=== PATIENT | male | born 1990 | race Caucasian/White ===

== ENCOUNTER 2020-01-05 16:52 | Emergency (ER) | payer BC ==
--- NOTE | 2020-01-05 17:58 | CR ---
Chest: 2 views of the chest were obtained. Comparison: No prior chest imaging. Heart size and mediastinum are normal. Lungs show no acute parenchymal change. Bony structures appear within normal limits. Impression: 1. Nothing acute is seen on 2 view chest x-ray. Diagnostic code #1 This report was dictated in Mountain Standard Time
--- NOTE | 2020-01-05 18:03 | EDM.PDOC ---
ED [facility] GENERAL MEDICAL PROBLEM - General Chief Complaint: Respiratory Problem Stated Complaint: COUGH Time Seen by Provider: 01/05/20 17:09 - History of Present Illness INITIAL COMMENTS - FREE TEXT/NARRATIVE: HPI 29-year-old male presents for evaluation of approximately 6 weeks of cough that occurred following a several day self-limited URI type episode. * Smoking: denies * Asthma: denies * Recent URI: immediately preceding symptom onset. * Meds: denies SHAYAN-I and beta blockers * GERD: denies dyspepsia, PPI/ranitidine * Sinus: denies congestion or post-nasal drip * B-Sx: denies night sweats, weight loss, fever * Travel: patient has previously traveled to [place] of [facility], no significant desert exposure. M/S/F/SocHx notable for: please see HPI; remainder reviewed with patient and in chart. ROS: Negative constitutional, eye, cardiovascular, pulmonary, GI, , MSK, skin , neurologic, psychiatric, endocrine unless noted in the HPI. Exam HR 73, RR 18, BP 138/81, T 36.7C, SaO2 9 & room air. Gen: Pleasant, non-toxic appearing, resting comfortably. HEENT: NC, AT, PEERL, EOMI, oropharynx visually normal without postnasal drip. Resp: Clear to auscultation bilaterally, normal work of breathing, no accessory muscle usage. Card: Regular rate and rhythm with no murmurs, rubs, or gallops, extremities warm and well perfused. GI: Non-tender to palpation throughout all quadrants, non-distended, no rebound or guarding. : No suprapubic tenderness to palpation. MSK: No visible deformities, strength and tone without visually appreciable deficit. Skin: Normal color with no visible lesions. Neuro: alert and oriented 3, no facial asymmetry, vision and hearing WNL. Psych: Mood and affect appropriate. Labs / Imaging: CXR: no acute cardiopulmonary abnormality. MDM Previous chart, nursing note, labs, imaging, and vitals reviewed. A: 29-year-old male presents for evaluation of approximately 6 weeks of cough that occurred following a several day self-limited URI type episode. DDx: pneumonia, pericardial effusion, pleural effusion, COPD, asthma, SHAYAN inhibitor induced cough, GERD, post viral cough, bronchitis, malignancy/neoplasm , heart failure, foreign body, pertussis, CHRISTEN. Evaluation: suspect post viral cough is the cause of the patients ongoing dry nonproductive cough. Patient had a viral type illness immediately preceding symptom onset. Patient is without B-symptoms, chest x-rays without evidence of effusions, no risk factors or exam findings suggestive of reactive airway disease, no medication use, no features suggestive of GERD, however this cannot be definitively excluded. Patient without weight gain, orthopnea, crackles, or lower extremity edema, strongly doubt heart failure. Habitus is not consistent with CHRISTEN. Disposition: discharge with PCP follow-up recommended. Impression: cough. - Related Data Allergies Allergy/AdvReac Type Severity Reaction Status Date / Time No Known Allergies Allergy Verified 01/05/20 17:09 Home Meds: Home Meds . [No Known Home Meds] 01/05/20 [History] Past Medical History HEENT History: Reports: None Cardiovascular History: Reports: None Respiratory History: Reports: None Gastrointestinal History: Reports: None Genitourinary History: Reports: None Musculoskeletal History: Reports: None Neurological History: Reports: None Psychiatric History: Reports: None Endocrine/Metabolic History: Reports: None Hematologic History: Reports: None Immunologic History: Reports: None Oncologic (Cancer) History: Reports: None Dermatologic History: Reports: None - Infectious Disease History Infectious Disease History: Reports: None - Past Surgical History Head Surgeries/Procedures: Reports: None HEENT Surgical History: Reports: None Cardiovascular Surgical History: Reports: None Respiratory Surgical History: Reports: None GI Surgical History: Reports: None Male Surgical History: Reports: None Endocrine Surgical History: Reports: None Neurological Surgical History: Reports: None Musculoskeletal Surgical History: Reports: Other (See Below) Other Musculoskeletal Surgeries/Procedures:: bone spur shaving Oncologic Surgical History: Reports: None Dermatological Surgical History: Reports: None Social & Family History - Family History Family Medical History: Noncontributory - Tobacco Use Smoking Status *Q: Never Smoker Second Hand Smoke Exposure: No - Caffeine Use Caffeine Use: Reports: Coffee, Energy Drinks, Soda, Tea - Recreational Drug Use Recreational Drug Use: No ED ROS GENERAL - Review of Systems Review Of Systems: See Below ED EXAM, GENERAL - Physical Exam Exam: See Below Course - Vital Signs Last Recorded V/S: Last Vital Signs Temp 36.7 C 01/05/20 17:10 Pulse 73 01/05/20 17:10 Resp 18 01/05/20 17:10 BP 138/81 01/05/20 17:10 Pulse Ox 99 01/05/20 17:10 Departure - Departure Time of Disposition: 18:02 Disposition: Home, Self-Care 01 Clinical Impression: Cough - Discharge Information Referrals: PCP,None [Primary Care Provider] - Additional Instructions: You were in seen in the [facility] Emergency Department for evaluation of a cough. The time of your evaluation your tentatively believed to have a post viral cough. These can last for a month , infrequently they may persist longer. Please read and follow all of the instructions below. Please follow up with your primary care physician within one week for repeat evaluation. When calling for follow-up care, please make the office aware that this follow-up is from your recent emergency room visit. If for any reason you are refused follow-up, please contact the [facility] Emergency Department at and asked to speak to the emergency department charge nurse. Your care today was limited to identifying and treating emergent medical problems only. Many people have subtle differences in their test results that require follow up with their outpatient physician(s) to correctly determine if this represents a normal variation or concerning abnormality with respect to your specific health. The care given to you today was limited to identifying and treating emergent medical problems - you need to request a copy of all of your medical records from today's visit and follow up with your outpatient physician(s) to review both today's visit and your overall health. If you have any new symptoms or if you are at all concerned about your health please return immediately to the emergency department. Prescriptions: If you are uninsured or have financial difficulties with filling your prescription(s), you may consider using a free pharmacy discount service such as [employer] ([employer]) or [employer] ([employer]). These services allow you to search for a medication on your phone (or computer) and obtain a coupon that usually has a significant discount from the list molina at a pharmacy. Your physician as well as [facility] does not have a financial relationship with either of these services. You may also wish to speak with your physician to determine if lower cost prescriptions are possible. Obtaining primary care: 1. [facility] provides pediatrics (children), family medicine (children, adults, and some obstetrical care), and internal medicine (adults). Further specialty care is also available. Same day appointments are available. They may be contacted at [phone] and are open Sunday through Sunday 8 AM to 5 PM. [facility] are located at [facility], [address], [place] [address]. 2. [facility] offers family medicine, internal medicine, women health, and further specialty care. [facility] may be contacted at [phone]. [facility] is located at [address] [facility] [address]. 3. If you have health insurance, please also contact your insurer for a list of accepting providers under your policy, you may contact these providers for further health care. Occupational health: Work related injuries may consider following up with [facility], . Occupational health services are located at [facility] [address] [place] [address] and are open Sunday through Sunday from 7: 30 am to 5:00 pm. Obstetrical and Gynecological Care: [facility], , Sunday through Sunday 8 AM to [address] [place] [address]. Eyecare: If you have an eye injury you should follow up with your commercial credit reviewer or with [facility], at [phone] or [phone] , they are located at [address] [place] [address]. Dental Care Justin Malhotra DDS. [address] [facility] [place], [place]. Ph. [phone] Hernan Malhotra DDS [place]. [address] [facility] [address], [place], [place]. Ph. Garrett Rivas DDS. [address] [facility] [place]. Ph. [phone] Gato Esquivel DDS. [address] [facility] [address] [place], [place]. Ph. [phone] Ben Dugan D[facility] PC. [address] [place], [place]. Ph. [phone] Kelly Poole DDS. [address] [facility]. Ph. [phone] [facility]. [address] [place], [place]. Ph. [phone] [facility]. [address], [place], [place]. Ph. [phone] [facility] [address] [place] [address]. Ph. [phone] [facility]. [address] [place] [address] [address]. [place], [place]. Ph. [facility]. [address] [place], [place]. Ph. You were seen in the emergency department today for evaluation of your chronic cough. No clear cause of your cough was identified today during your evaluation. As we discussed, there are many possible causes of long-term coughing, these range from minor but annoying causes - such as acid reflux and allergic postnasal drip - to more serious causes such as fungal infections, heart problems, or even cancer. Therefore, you must follow-up your primary care physician for further evaluation and care. When you follow up with your primary care physician please also review your pending laboratory studies. You may do the following treatments to reduce your symptoms: Epmt-dth-ewphcon cough medications containing dextromethorphan may reduce the frequency and severity of your coughing. Please take as directed on the bottle. Please read all warnings on the bottle. Do not take this medication if you have any allergies to any of the ingredients listed on the bottle. Please stay well-hydrated and get adequate rest. If you are a smoker please stop smoking. Cuvs-[id number]-anbcfju lozenges or tea with honey may be used for sore throat. Please return to the emergency department if any of the following occur: Increasing fever. Worsening cough or a cough that becomes productive of thick sputum. A cough that temporarily gets better and then over the several days get significantly worse. This may occur if you developed a bacterial pneumonia following your viral infection. This rarely occurs and there is no prevention at this point in your infection. Chest pain. Shortness of breath or difficulty breathing. If you are otherwise concerned about your health. Sepsis Event Note - Evaluation Sepsis Screening Result: No Definite Risk - Focused Exam Vital Signs: Vital Signs Temp Pulse Resp BP Pulse Ox 01/05/20 17:10 36.7 C 73 18 138/81 99 Date Exam was Performed: 01/05/20 Time Exam was Performed: 18:02
== END 2020-01-05 18:08 | disposition home or self-care (01) ==
LOC: MW.ED 16:52
DX: R05 Cough (principal)
CPT/HCPCS: 71046; 71046-26; 99283-25